=== PATIENT | female | born 2000 | race Caucasian/White ===

== ENCOUNTER 2024-08-11 23:20 | Emergency (ER) | payer MEDICAID ==
[~2024-08-11] VITALS: Ht 172.7 cm; Wt 82.0 kg
[2024-08-11 23:37] VITALS: O2SAT 100
[2024-08-11 23:50] VITALS: BP 159/98; PULSE 98; RESP 18; TEMP 98.8; O2SAT 99
[2024-08-12] MEDS ORDERED: KETOROLAC 15MG/ML VIAL IM ONE
[2024-08-12] MEDS ORDERED: KETOROLAC 15MG/ML VIAL IM NR (00:45)
[2024-08-12] MEDS ORDERED: NAPR-1176 MT (02:09)
== END 2024-08-12 02:32 | disposition home or self-care (01) ==
LOC: ER 23:20
DX: K02.9 Dental caries, unspecified (principal); Z79.1 Long term (current) use of non-steroidal anti-inflammatories (NSAID)
CPT/HCPCS: 99282